=== PATIENT | female | born 1955 | race African-American/Black ===

== ENCOUNTER → 2019-01-16 | Outpatient (REF) | payer OTHER ==
[~2019-01-16] MED LIST: AMLO10TA5 PO; AMLO5TAB6 PO; ASPI81TA24 PO; ASPI81TA26 PO; BENA40TA7 PO; BEPR1.5D2 OU; CYCL10TA5 PO; CYCL7.5T50 PO; DIVA500T9 PO; ESOM1CAP5 PO; ESTR1CRE PV; FLON1SPR; FLUT1BLS4 IH; GABA-843 PO; GABA600T4 PO; HYDR25TAB PO; MONT10TA2 PO; NEXI40CA PO; PROAAER10 INH; RANI150T PO; RANI1TAB38 PO; ROSU40TA3 PO; SIMB1SUS OP; SIMB1SUS OU; SING5CHW23 PO; TRAV04OPD OP; TRAV04OPD OU; TRAZ25TA PO; VENL150C43 PO
[2019-01-17 11:42] LABS: BASO % 0.3 % (0.0-1.0); EOS # 0.1 10^3/uL (0.0-0.50); EOS % 1.4 % (0.0-3.0); HEMATOCRIT 30.8 % (36.0-47.0); LYMPH % 26.7 % (24.0-44.0); MEAN CORPUSCULAR HGB CONC 32.5 g/dl (32.0-36.5); MEAN CORPUSCULAR VOLUME 89.3 fl (80.0-96.0); MONO # 0.4 10^3/uL (0.0-0.8); MONO % 5.7 % (0.0-5.0); NEUTROPHILS # 4.8 10^3/uL (1.8-7.7); NEUTROPHILS % 65.5 % (36.0-66.0); PLATELET COUNT, AUTOMATED 257 10^3/uL (150-450); RED BLOOD COUNT 3.45 10^6/uL (4.00-5.40); WHITE BLOOD COUNT 7.3 10^3/uL (4.0-10.0)
[2019-01-17 12:05] LABS: ALBUMIN 4.4 GM/DL (3.2-5.2); BILIRUBIN,TOTAL 0.5 MG/DL (0.2-1.0); CREATININE FOR GFR 2.47 MG/DL (0.55-1.30); GLOMERULAR FILTRATION RATE 25.4 (>45); POTASSIUM SERUM 3.2 MEQ/L (3.5-5.1); THYROID STIMULATING HORMONE 0.361 uIU/ML (0.358-3.740); TOTAL PROTEIN 8.5 GM/DL (6.4-8.2)
== END ==
LOC: M SFHCLERA 19:55
PROVIDERS: ATTEND Physician Assistant
DX: R53.83 Other fatigue (principal)

== ENCOUNTER 2019-01-17 21:32 | Observation (INO) | payer MEDICARE, OTHER ==
[~2019-01-17] VITALS: Ht 165.1 cm; Wt 70.5 kg
[2019-01-17] MEDS ORDERED: DIVA500T9 PO (21:38)
[2019-01-17] MEDS ORDERED: BENA40TA7 PO (21:38)
[2019-01-17] MEDS ORDERED: ASPI81TA26 PO (21:38)
[2019-01-17] MEDS ORDERED: AMLO10TA5 PO (21:38)
[2019-01-17] MEDS ORDERED: ROSU40TA3 PO (22:01)
[2019-01-17] MEDS ORDERED: ESOM1CAP5 PO (22:01)
[2019-01-17] MEDS ORDERED: FLUT1BLS4 IH (22:01)
[2019-01-17] MEDS ORDERED: SING5CHW23 PO (22:01)
[2019-01-17] MEDS ORDERED: GABA600T4 PO (22:01)
[2019-01-17] MEDS ORDERED: TRAZ25TA PO (22:01)
[2019-01-17] MEDS ORDERED: CYCL10TA5 PO (22:01)
[2019-01-17] MEDS ORDERED: TRAV04OPD OP (22:01)
[2019-01-17] MEDS ORDERED: SIMB1SUS OP (22:01)
[2019-01-17] MEDS ORDERED: HYDR25TAB PO (22:01)
[2019-01-17] MEDS ORDERED: RANI1TAB38 PO (22:01)
[2019-01-17] MEDS ORDERED: VENL150C43 PO (22:01)
[2019-01-17] MEDS ORDERED: ONDANSETRON 4MG/2ML VIAL (J2405) IV ONE (23:00)
[2019-01-17 23:53] LABS: BASO % 0.5 % (0.0-1.0); EOS # 0.1 10^3/uL (0.0-0.50); EOS % 1.2 % (0.0-3.0); HEMATOCRIT 30.3 % (36.0-47.0); HEMOGLOBIN 9.9 g/dl (12.0-15.5); LYMPH # 1.5 10^3/uL (1.5-4.5); LYMPH % 25.9 % (24.0-44.0); MEAN CORPUSCULAR HEMOGLOBIN 29.4 pg (27.0-33.0); MEAN CORPUSCULAR HGB CONC 32.7 g/dl (32.0-36.5); MEAN CORPUSCULAR VOLUME 89.9 fl (80.0-96.0); MONO # 0.3 10^3/uL (0.0-0.8); NEUTROPHILS # 3.9 10^3/uL (1.8-7.7); NEUTROPHILS % 67.1 % (36.0-66.0); PLATELET COUNT, AUTOMATED 238 10^3/uL (150-450); RED BLOOD COUNT 3.37 10^6/uL (4.00-5.40); WHITE BLOOD COUNT 5.8 10^3/uL (4.0-10.0)
[2019-01-18] MEDS: NS 1,000 ML IV SCH ×2 (00:01→08:58)
[2019-01-18 00:06] LABS: INR 0.95; PROTHROMBIN TIME 12.8 SECONDS (12.1-14.4)
[2019-01-18 00:17] LABS: ALBUMIN 4.4 GM/DL (3.2-5.2); ALT/SGPT 29 U/L (12-78); BILIRUBIN,DIRECT 0.1 MG/DL (0.0-0.2); BILIRUBIN,TOTAL 0.3 MG/DL (0.2-1.0); BLOOD UREA NITROGEN 33 MG/DL (7-18); CALCIUM LEVEL 9.6 MG/DL (8.8-10.2); CARBON DIOXIDE LEVEL 28 MEQ/L (21-32); CHLORIDE LEVEL 104 MEQ/L (98-107); CK-MB VALUE MASS < 1.0 NG/ML (<3.6); CPK CREATINE PHOSPHOKINASE 102 U/L (26-192); GLOMERULAR FILTRATION RATE 27.6 (>45); GLUCOSE, FASTING 111 MG/DL (70-100); LIPASE 248 U/L (73-393); MB/CK RELATIVE INDEX 0.98 (< OR =4); POTASSIUM SERUM 3.2 MEQ/L (3.5-5.1); SODIUM LEVEL 141 MEQ/L (136-145); TOTAL PROTEIN 7.8 GM/DL (6.4-8.2); TROPONIN I < 0.02 NG/ML (< 0.10)
--- NOTE | 2019-01-18 00:36 | REP ---
Clinical: Lower chest and abdominal pain . Comparison: None . Technique: PA and lateral. Findings: The mediastinum and cardiac silhouette are normal. The lung francisco are clear and without acute consolidation, effusion, or pneumothorax. The skeletal structures are intact and normal. Impression: 1. No acute cardiopulmonary process. Electronically Signed by Jona Covarrubias MD 01/18/2019 12:28 A
[2019-01-18] MEDS ORDERED: HYDR25TAB PO (01:03)
[2019-01-18] MEDS ORDERED: ASPI81TA24 PO (01:03)
[2019-01-18] MEDS ORDERED: BEPR1.5D2 OU (01:03)
[2019-01-18] MEDS ORDERED: AMLO10TA5 PO (01:03)
[2019-01-18] MEDS ORDERED: PROAAER10 INH (01:03)
[2019-01-18] MEDS ORDERED: ROSU40TA3 PO (01:03)
[2019-01-18] MEDS ORDERED: GABA-843 PO (01:03)
[2019-01-18] MEDS ORDERED: ESTR1CRE PV (01:03)
[2019-01-18] MEDS ORDERED: MONT10TA2 PO (01:03)
[2019-01-18] MEDS ORDERED: CYCL7.5T50 PO (01:03)
[2019-01-18] MEDS ORDERED: RANI150T PO (01:03)
[2019-01-18] MEDS ORDERED: SIMB1SUS OU (01:03)
[2019-01-18] MEDS ORDERED: VENL150C43 PO (01:03)
[2019-01-18] MEDS ORDERED: TRAV04OPD OU (01:03)
[2019-01-18] MEDS ORDERED: NEXI40CA PO (01:03)
[2019-01-18] MEDS ORDERED: FLON1SPR (01:03)
[2019-01-18] MEDS ORDERED: BENA40TA7 PO (01:03)
[2019-01-18] MEDS ORDERED: ACETAMINOPHEN TAB 650MG DOSE (2X325MG) PO PRN (01:30)
[2019-01-18] MEDS ORDERED: MOM 30ML SUSPENSION UDC PO PRN (01:30)
[2019-01-18] MEDS ORDERED: MAALOX 30 ML SUSP *UDC PO PRN (01:30)
[2019-01-18] MEDS ORDERED: FLUTICASONE PROP 0.05% NASAL SPRAY 16 GM (FLONASE) PRN (01:30)
--- NOTE | 2019-01-18 02:51 | HPEPDOC ---
General Date of Admission January 17, 2019 at 21:33 Chief Complaint The patient is a 63-year-old female admitted with a reason for visit of Anemia,R enal Failure. Source: Patient, Family, RN/MD History of Present Illness Ms. Campbell is a 63 years old [facility] woman who is visiting her daughter here in [facility]. She went to Urgent [facility] Center for evaluation of fatigue and generalized weakness of one week duration. The pt denies SOB, chest pain, headache, abdominal pain, nausea, vomiting, diarrhea, melena, abnormal bleeding, decreased oral intake or other change in her usual state of health. There are no old records to review or compare, but pt reports hx/o Anemia, Kidney problem, HTN, HLD, GERD and Glaucoma. At urgent care, pt was noted to have a serum Cr of 2.3. K 3.2 and Hb 9.9. Pt is returning [place] on the of this month. Home Medications Scheduled Amlodipine Besylate (Amlodipine Besylate) 10 Mg Tablet, 10 MG PO DAILY, (Repo rted) Aspirin (Aspirin EC) 81 Mg Tablet.dr, 81 MG PO DAILY, (Reported) Benazepril HCl (Benazepril HCl) 40 Mg Tablet, 40 MG PO DAILY, (Reported) Brinzolamide/Brimonidine Tart (Simbrinza 1%-0.2% Eye Drops) 8 Ml Drops.susp, 1 DROP OU BID, (Reported) Esomeprazole Magnesium (Nexium) 40 Mg Capsule.dr, 40 MG PO QHS, (Reported) Estradiol (Estrace) 42.5 Gm Cream.appl, 1 DOSE PV 2XW, (Reported) TAKES ON SUNDAYS AND THURSDAYS Gabapentin (Gabapentin) 300 Mg Capsule, 300 MG PO QHS, (Reported) Hydrochlorothiazide (Hydrochlorothiazide) 25 Mg Tablet, 25 MG PO DAILY, (Reported) Montelukast Sodium (Montelukast Sodium) 10 Mg Tablet, 10 MG PO QHS, (Reported) Ranitidine HCl (Ranitidine HCl) 150 Mg Tablet, 1 TAB PO DAILY, (Reported) Rosuvastatin Calcium (Rosuvastatin Calcium) 40 Mg Tablet, 40 MG PO QHS, (Reported) Travoprost (Travatan Z) 0.004% 2.5ML Drops, 1 DROP OU QHS, (Reported) Venlafaxine HCl (Venlafaxine HCl ER) 150 Mg Cap.er.24h, 150 MG PO QHS, (Reported) Scheduled PRN Albuterol Sulfate (Proair Hfa) 8.5 Gm Hfa.aer.ad, 2 PUFF INH QID PRN for SHORTNESS OF BREATH, (Reported) Bepotastine Besilate (Bepreve) 1.5% 10ML Drops, 1 DROP OU BID PRN for ITCHING, (Reported) Cyclobenzaprine HCl (Cyclobenzaprine HCl) 7.5 Mg Tablet, 7.5 MG PO TID PRN for MUSCLE SPASMS, (Reported) Fluticasone Propionate (Flonase Allergy Relief) 9.9 Ml [place].susp, 1 SPRAY NA BID PRN for NASAL CONGESTION, (Reported) Allergies Coded Allergies: No Known Allergies (Unverified , 01/17/19) Past Medical History Medical History Anemia, Kidney problem, HTN, HLD, GERD, Glaucoma, Sickle Cell Trait Surgical History C- spine fusion Family History Significant Family History: No pertinent family hx Social History * Smoker: Denies Alcohol: Denies Drugs: denies A-FIB/CHADSVASC A-FIB History Current/History of A-Fib/PAF?: No Review of Systems Constitutional: Reports: Malaise, Weakness, Fatigue; Denies: Chills, Fever Eyes: Denies: Pain ENT: Denies: Head Aches Skin: Denies: Rash Pulmonary: Denies: Dyspnea, Cough Cardiovascular: Denies: Chest Pain Gastrointestinal: Denies: Nausea, Vomiting, Abdominal Pain, Diarrhea Genitourinary: Denies: Dysuria, Frequency Neurological: Denies: Weakness, Numbness Psych: Denies: Mood Normal Physical Examination General Exam: Positive: Alert, Cooperative, No Acute Distress Eye Exam: Positive: PERRLA ENT Exam: Positive: Atraumatic Neck Exam: Positive: Supple Chest Exam: Positive: Clear to auscultation Heart Exam: Positive: Rate Normal, Regular Rhythm Abdomen Exam: Positive: Normal bowel sounds, Soft; Negative: Tenderness Extremity Exam: Negative: Edema Skin Exam: Negative: Rash Neuro Exam: Positive: Normal Speech, Strength at 5/5 X4 ext Psych Exam: Positive: Mental status NL, Mood NL Vital Signs Vital Signs Date Time Temp Pulse Resp B/P (MAP) Pulse Ox O2 Delivery O2 Flow Rate FiO2 01/18/19 00:50 97.8 62 16 120/76 (91) 100 Room Air Laboratory Data Labs 24H Laboratory Tests 2 01/17/19 23:10: Urine Color YELLOW, Urine Appearance HAZY, Urine pH 6.0, Urine Specific [place] 1.010, Urine Protein 2+H, Urine Glucose (UA) NEGATIVE, Urine Ketones NEGATIVE, Urine Blood 1+H, Urine Nitrite NEGATIVE, Urine Bilirubin NEGATIVE, Urine Urobilinogen 0.2, Urine Leukocyte Esterase TRACEH, Urine WBC (Auto) 5H, Urine RBC (Auto) 2, Urine Hyaline Casts (Auto) 0, Urine Bacteria (Auto) NEGATIVE, Urine Squamous Epithelial Cells 5, Urine Sperm (Auto) 01/17/19 23:43: Immature Granulocyte % (Auto) 0.3, White Blood Count 5.8, Red Blood Count 3.37L, Hemoglobin 9.9L, Hematocrit 30.3L, Mean Corpuscular Volume 89.9, Mean Corpuscular Hemoglobin 29.4, Mean Corpuscular Hemoglobin Concent 32.7, Red Cell Distribution Width 14.5, Platelet Count 238, Neutrophils (%) (Auto) 67.1H, Lymphocytes (%) (Auto) 25.9, Monocytes (%) (Auto) 5.0, Eosinophils (%) (Auto) 1.2, Basophils (%) (Auto) 0.5, Neutrophils # (Auto) 3.9, Lymphocytes # (Auto) 1.5, Monocytes # (Auto) 0.3, Eosinophils # (Auto) 0.1, Basophils # (Auto) 0.0, N ucleated Red Blood Cells % (auto) 0.0, Prothrombin Time 12.8, Prothromb Time International Ratio 0.95, Anion Gap 9, Glomerular Filtration Rate 27.6L, Calcium Level 9.6, Aspartate Amino Transf (AST/SGOT) 20, Alanine Aminotransferase (ALT/SGPT) 29, Alkaline Phosphatase 74, Total Bilirubin 0.3, Direct Bilirubin 0.1, Total Creatine Kinase 102, Creatine Kinase MB < 1.0, Creatine Kinase MB Relative Index 0.98, Troponin I < 0.02, Total Protein 7.8, Albumin 4.4, Albumin/Globulin Ratio 1.29, Lipase 248 CBC/BMP Laboratory Tests 01/17/19 23:43 Red Blood Count 3.37 L, Mean Corpuscular Volume 89.9, Mean Corpuscular Hemoglobin 29.4, Mean Corpuscular Hemoglobin Concent 32.7, Red Cell Distribution Width 14.5, Neutrophils (%) (Auto) 67.1 H, Lymphocytes (%) (Auto) 25.9, Monocytes (%) (Auto) 5.0, Eosinophils (%) (Auto) 1.2, Basophils (%) (Auto) 0.5, Neutrophils # (Auto) 3.9, Lymphocytes # (Auto) 1.5, Monocytes # (Auto) 0.3, Eosinophils # (Auto) 0.1, Basophils # (Auto) 0.0 Microbiology Microbiology 01/17/19 Urine Culture, Received Pending Assessment/Plan Keep on Obs for renal fx and h/h monitoring. 1. Renal Failure; suspect CKD based on History; unsure if there is an acute component - IV fluid - monitor renal fx 2. Hypokalemia - Supplement and monitor 3. Chronic Anemia; unsure if there is an acute component - Monitor h/h - Iron studies - Should f/u with PCP for colonoscopy referral Plan / VTE VTE Prophylaxis Ordered?: No VTE Exclusion Mechanical Proph: Low Risk for VTE VTE Exclusion Pharmacological: At Low Risk for VTE MATT RENO MD January 18, 2019 02:51
[2019-01-18] MEDS: LATANOPROST 0.005% OPHTH SOLN 2.5 ML OU SCH ×2 (03:04→22:06)
[2019-01-18 03:45] VITALS: BP 114/65
[2019-01-18] MEDS: KCL 40MEQ in NS 1000ML 1,000 ML IV SCH ×4 (04:00→18:29)
[2019-01-18 04:21] LABS: IRON (FE) 62 UG/DL (50-170); PERCENT SATURATION 19.3 % (13.2-45.0); TOTAL IRON BINDING CAPACITY 321 UG/DL (250-450)
[2019-01-18 05:00] VITALS: BP 114/65
[2019-01-18 08:00] VITALS: BP 96/56
[2019-01-18] MEDS ORDERED: amLODIPine 10 MG TAB PO SCH (09:00)
[2019-01-18] MEDS: ASPIRIN 81 MG ENTERIC TAB PO SCH (09:06)
[2019-01-18] MEDS: raNITIdine SYRUP 150 MG/10 ML UDC PO SCH (09:06)
[2019-01-18 12:03] LABS: HEMATOCRIT 29.2 % (36.0-47.0); HEMOGLOBIN 9.4 g/dl (12.0-15.5); MEAN CORPUSCULAR HEMOGLOBIN 29.3 pg (27.0-33.0); MEAN CORPUSCULAR HGB CONC 32.2 g/dl (32.0-36.5); PLATELET COUNT, AUTOMATED 223 10^3/uL (150-450); RED BLOOD COUNT 3.21 10^6/uL (4.00-5.40); WHITE BLOOD COUNT 5.3 10^3/uL (4.0-10.0)
[2019-01-18 12:32] LABS: CALCIUM LEVEL 9.2 MG/DL (8.8-10.2); CREATININE FOR GFR 1.86 MG/DL (0.55-1.30); GLOMERULAR FILTRATION RATE 35.3 (>45)
--- NOTE | 2019-01-18 13:41 | IPNPDOC ---
Text Note Date of Service The patient was seen on 01/18/19. NOTE Subjective: Patient a 63-year-old -[place] female with a PMHx of HTN, DLP, Kidney problems?, Anemia, Glaucoma and GERD who presented to the ER from urgent care for abnormal lab work. Patient had initially presented to urgent care or fatigue and generalized weakness. Patient was admitted to hospitalist service for further evaluation and treatment. She is returning back to [place] on the 02/04/19. Patient was seen and examined at the bedside. Currently, patient reports that she does not express any chest pain, shortness of breath or palpitations. Denies any nausea, vomiting, pain, constipation, diarrhea or any discomfort with urination. Objective: Vitals (See below) General: Lying in bed, no acute distress, comfortable, AAOx3 HEENT: NC, AT CVS: RRR, +S1S2 Lungs: Fair air entry b/l, -w/r/r Abdomen: Soft, ND, NT Extremities: - Edema, - Calf tenderness Assessment and plan: Renal Failure; suspect CKD based on History; unsure if there is an acute component - patient has been on HCTZ / Lisinopril as an outpatient - Cr on admission of 2.30 - Creatinine has improved 1.86 - Will continue with IV fluid hydration for additional 24 hours; will reduce rate - Will DC HCTZ; will consider restarting Benazepril based on BP - Will have outpatient follow-up upon discharge s/p Hypokalemia HTN - BP appears well controlled with Amlodipine alone - Will HOLD Lisinopril / HCTZ - Will continue to monitor DLP - c/w Rosuvastatin Anemia - Hg appears stable - no evidence of bleeding - Will have outpatient f/u with PCP; for screening colonoscopy Depression - c/w Venlafaxine Glaucoma - c/w Eye drops from outpatient Neuropathy - c/w Gabapentin GERD - c/w Protonix and Ranitidine DVT prophylaxis - c/w TEDs/Sequentials VS,Fishbone, I+O VS, Fishbone, I+O Laboratory Tests 01/17/19 23:43 Red Blood Count 3.37 L, Mean Corpuscular Volume 89.9, Mean Corpuscular Hemoglobin 29.4, Mean Corpuscular Hemoglobin Concent 32.7, Red Cell Distribution Width 14.5, Neutrophils (%) (Auto) 67.1 H, Lymphocytes (%) (Auto) 25.9, Monocytes (%) (Auto) 5.0, Eosinophils (%) (Auto) 1.2, Basophils (%) (Auto) 0.5, Neutrophils # (Auto) 3.9, Lymphocytes # (Auto) 1.5, Monocytes # (Auto) 0.3, Eosinophils # (Auto) 0.1, Basophils # (Auto) 0.0 01/18/19 11:46 Red Blood Count 3.21 L, Mean Corpuscular Volume 91.0, Mean Corpuscular Hemoglobin 29.3, Mean Corpuscular Hemoglobin Concent 32.2, Red Cell Distribution Width 14.8 H, Calcium Level 9.2 Vital Signs Date Time Temp Pulse Resp B/P (MAP) Pulse Ox O2 Delivery O2 Flow Rate FiO2 01/18/19 09:06 62 96/56 01/18/19 08:00 97.3 16 100 01/18/19 03:12 Room Air I&O- Last 24 Hours up to 6 AM 01/18/19 06:00 Intake Total 1000 ml Balance 1000 ml SHAYNA CHRIS MD January 18, 2019 13:41
[2019-01-18 16:00] VITALS: BP 95/63
[2019-01-18 20:00] VITALS: BP 117/77
--- NOTE | 2019-01-18 20:26 | ECGEPIP ---
Stationary ECG Study [facility] - ED Test Date: 2019-01-17 Pat Name: EUGENIA BUNDY Department: Room: [place] [address] Gender: F Credit Collection Associate: rizwan : 1955 Requested By: AUTUMN KAMARA Order Number: [id number] Reading MD: Kellie Ogden Measurements Intervals [place] Rate: 62 P: -5 MS: 134 QRS: -28 QRSD: 101 T: 18 QT: 413 QTc: 420 Interpretive Statements SINUS RHYTHM BORDERLINE LEFT AXIS DEVIATION NSTTW ABNORMALITY NO PRIOR FOR COMPARISON Electronically Signed On 01-18-2019 20:25:51 EDT by Kellie Ogden
[2019-01-18] MEDS ORDERED: ROSUVASTATIN 10 MG TAB (CRESTOR) PO SCH (21:00)
[2019-01-18] MEDS ORDERED: MONTELUKAST 10 MG TAB PO SCH (21:00)
[2019-01-18] MEDS ORDERED: VENLAFAXINE **XR** 75MG CAPSULE PO SCH (21:00)
[2019-01-18] MEDS ORDERED: PANTOPRAZOLE 40MG TAB (PROTONIX) PO SCH (21:00)
[2019-01-18] MEDS ORDERED: GABAPENTIN 300 MG CAP PO SCH (21:00)
[2019-01-19] VITALS: BP 122/53
[2019-01-19] MEDS: KCL 40MEQ in NS 1000ML 1,000 ML IV SCH (05:00)
[2019-01-19 06:54] LABS: HEMATOCRIT 27.4 % (36.0-47.0); MEAN CORPUSCULAR HEMOGLOBIN 29.3 pg (27.0-33.0); MEAN CORPUSCULAR HGB CONC 32.8 g/dl (32.0-36.5); MEAN CORPUSCULAR VOLUME 89.3 fl (80.0-96.0); PLATELET COUNT, AUTOMATED 216 10^3/uL (150-450); RED BLOOD COUNT 3.07 10^6/uL (4.00-5.40); WHITE BLOOD COUNT 4.3 10^3/uL (4.0-10.0)
[2019-01-19 07:17] LABS: CALCIUM LEVEL 8.6 MG/DL (8.8-10.2); CREATININE FOR GFR 1.54 MG/DL (0.55-1.30); GLOMERULAR FILTRATION RATE 43.9 (>45); POTASSIUM SERUM 3.9 MEQ/L (3.5-5.1)
[2019-01-19 08:00] VITALS: BP 115/72
[2019-01-19] MEDS: ASPIRIN 81 MG ENTERIC TAB PO SCH (08:31)
[2019-01-19] MEDS: raNITIdine SYRUP 150 MG/10 ML UDC PO SCH (08:31)
[2019-01-19 08:32] VITALS: BP 115/72
[2019-01-19] MEDS ORDERED: amLODIPine 5 MG TAB PO SCH (09:00)
[2019-01-19] MEDS ORDERED: AMLO5TAB6 PO (10:32)
--- NOTE | 2019-01-19 12:17 | DS.PDOC ---
Discharge Summary General Date of Admission January 17, 2019 at 21:33 Date of Discharge 01/19/2019 Discharge Summary PROCEDURES PERFORMED DURING STAY: [None]. ADMITTING DIAGNOSES / DISCHARGE DIAGNOSES: Renal Failure; suspect CKD based on History; unsure if there is an acute component - patient has been on HCTZ / Lisinopril as an outpatient s/p Hypokalemia HTN DLP Anemia Depression Glaucoma Neuropathy GERD DVT prophylaxis COMPLICATIONS/CHIEF COMPLAINT: Weakness and was found to have elevated Cr in ER HISTORY OF PRESENT ILLNESS: Patient a 63-year-old -[place] female with a PMHx of HTN, DLP, Kidney problems?, Anemia, Glaucoma and GERD who presented to the ER from urgent care for abnormal lab work. Patient had initially presented to urgent care or fatigue and generalized weakness. Patient was admitted to hospitalist service for further evaluation and treatment. She is returning back to [place] on the 02/04/19. HOSPITAL COURSE: Renal Failure; suspect CKD based on History; unsure if there is an acute component - patient has been on HCTZ / Lisinopril as an outpatient - Cr on admission of 2.30 - Creatinine has continued to improve - Will DC IV fluids - BP medications will be discontinued; c/w amlodipine alone (at adjusted dose) - Will have outpatient follow-up upon discharge s/p Hypokalemia HTN - BP appears well controlled with Amlodipine alone - Will HOLD Lisinopril / HCTZ - Will continue to monitor - Will c/w adjusted dose of Amlodipine and have outpatient f/u with [facility] DLP - c/w Rosuvastatin Anemia - Hg appears stable - no evidence of bleeding - Will have outpatient f/u with PCP; for screening colonoscopy Depression - c/w Venlafaxine Glaucoma - c/w Eye drops from outpatient Neuropathy - c/w Gabapentin GERD - c/w Protonix and Ranitidine DVT prophylaxis - c/w TEDs/Sequentials DISCHARGE MEDICATIONS: Please see below. ALLERGIES: Please see below. PHYSICAL EXAMINATION ON DISCHARGE: Vitals (See below) General: Lying in bed, no acute distress, comfortable, AAOx3 HEENT: NC, AT CVS: RRR, +S1S2 Lungs: Fair air entry b/l, no evidence of wheezing, rales or rhonchi Abdomen: Soft, nondistended, without tenderness Extremities: No evidence of lower extremity edema, - Calf tenderness LABORATORY DATA: Please see below. ACTIVITY: [As tolerated]. DISCHARGE PLAN: Follow-up with resident clinic within 7 days Remain compliant with treatment plan and medications Return to the ER if you experience any problems DISPOSITION: Home DISCHARGE CONDITION: [Stable]. TIME SPENT ON DISCHARGE: Greater than [35] minutes. Vital Signs/I&Os Vital Signs Date Time Temp Pulse Resp B/P (MAP) Pulse Ox O2 Delivery O2 Flow Rate FiO2 01/19/19 08:32 63 115/72 01/19/19 08:00 97.6 18 99 01/18/19 03:12 Room Air I&O- Last 24 Hours up to 6 AM 01/19/19 06:00 Intake Total 4520 ml Output Total 3901 ml Balance 619 ml Laboratory Data Labs 24H Laboratory Tests 2 01/19/19 06:23: Nucleated Red Blood Cells % (auto) 0.0, Anion Gap 8, Glomerular Filtration Rate 43.9L, Blood Urea Nitrogen 16, Creatinine 1.54H, Sodium Level 145, Potassium Level 3.9, Chloride Level 113H, Carbon Dioxide Level 24, Calcium Level 8.6L CBC/BMP Laboratory Tests 01/19/19 06:23 Red Blood Count 3.07 L, Mean Corpuscular Volume 89.3, Mean Corpuscular Hemoglobin 29.3, Mean Corpuscular Hemoglobin Concent 32.8, Red Cell Distribution Width 14.6 H, Calcium Level 8.6 L Microbiology Microbiology 01/17/19 Urine Culture - Final, Complete Discharge Medications Scheduled Amlodipine Besylate (Amlodipine Besylate) 5 Mg Tablet, 5 MG PO DAILY Aspirin (Aspirin EC) 81 Mg Tablet.dr, 81 MG PO DAILY, (Reported) Brinzolamide/Brimonidine Tart (Simbrinza 1%-0.2% Eye Drops) 8 Ml Drops.susp, 1 DROP OU BID, (Reported) Esomeprazole Magnesium (Nexium) 40 Mg Capsule.dr, 40 MG PO QHS, (Reported) Estradiol (Estrace) 42.5 Gm Cream.appl, 1 DOSE PV 2XW, (Reported) TAKES ON SUNDAYS AND THURSDAYS Gabapentin (Gabapentin) 300 Mg Capsule, 300 MG PO QHS, (Reported) Montelukast Sodium (Montelukast Sodium) 10 Mg Tablet, 10 MG PO QHS, (Reported) Ranitidine HCl (Ranitidine HCl) 150 Mg Tablet, 1 TAB PO DAILY, (Reported) Rosuvastatin Calcium (Rosuvastatin Calcium) 40 Mg Tablet, 40 MG PO QHS, (Reported) Travoprost (Travatan Z) 0.004% 2.5ML Drops, 1 DROP OU QHS, (Reported) Venlafaxine HCl (Venlafaxine HCl ER) 150 Mg Cap.er.24h, 150 MG PO QHS, (Reported) Scheduled PRN Albuterol Sulfate (Proair Hfa) 8.5 Gm Hfa.aer.ad, 2 PUFF INH QID PRN for SHORTNESS OF BREATH, (Reported) Bepotastine Besilate (Bepreve) 1.5% 10ML Drops, 1 DROP OU BID PRN for ITCHING, (Reported) Cyclobenzaprine HCl (Cyclobenzaprine HCl) 7.5 Mg Tablet, 7.5 MG PO TID PRN for MUSCLE SPASMS, (Reported) Fluticasone Propionate (Flonase Allergy Relief) 9.9 Ml [place].susp, 1 SPRAY NA BID PRN for NASAL CONGESTION, (Reported) Allergies Coded Allergies: No Known Allergies (Unverified , 01/17/19) SHAYNA CHRIS MD January 19, 2019 12:17
== END 2019-01-19 12:25 | disposition home or self-care (01) ==
LOC: M ED 21:32 → M ED INP 21:33 → M PED 01-18 03:40
PROVIDERS: ADMIT Internal Medicine; ATTEND Internal Medicine
DX: N19 Unspecified kidney failure (principal); E87.6 Hypokalemia; E78.5 Hyperlipidemia, unspecified; D64.9 Anemia, unspecified; F32.9 Major depressive disorder, single episode, unspecified; H40.9 Unspecified glaucoma; G62.9 Polyneuropathy, unspecified; K21.9 Gastro-esophageal reflux disease without esophagitis; I10 Essential (primary) hypertension; Z79.82 Long term (current) use of aspirin; Z79.899 Other long term (current) drug therapy
CPT/HCPCS: 36415; 71046; 80048; 80076; 81001; 82550; 82553; 83550; 83690; 84484; 85025; 85027; 85610; 87086; 93005; 93041; 96361; 96374; 99285; G0378; J2405

== ENCOUNTER → 2019-01-24 | Outpatient (CLI) | payer MEDICARE, OTHER ==
[2019-01-24 12:42] LABS: CREATININE FOR GFR 1.29 MG/DL (0.55-1.30); GLOMERULAR FILTRATION RATE 53.8 (>45); POTASSIUM SERUM 3.9 MEQ/L (3.5-5.1)
== END ==
LOC: M LAB 11:15
PROVIDERS: ATTEND Internal Medicine
DX: S37.009A Unspecified injury of unspecified kidney, initial encounter (principal); X58.XXXA Exposure to other specified factors, initial encounter; Y92.89 Other specified places as the place of occurrence of the external cause